=== PATIENT | male | born 1980 | race Caucasian/White ===

== ENCOUNTER 2021-07-12 17:17 | Emergency (ER) | payer SELFPAY ==
[2021-07-12] MEDS ORDERED: BUTALB/ACETAMINOPHEN/CAFFEINE TAB PO ONE (17:35)
[2021-07-12] MEDS ORDERED: fentaNYL 100 MCG/2 ML INJ IM ONE (17:35)
[2021-07-12] MEDS ORDERED: ONDANSETRON 4 MG/2 ML INJ IM ONE (17:35)
--- NOTE | 2021-07-12 17:38 | Emergency Department Report ---
HPI - General Chief Complaint: Headache Time Seen by Provider: 07/12/21 17:28 - HPI HPI: Room 1 The patient is a 40-year-old male present with a chief complaint of headache. Patient states that 3 days he has had intermittent right frontal parietal head ache he describes as a migraine. Patient states he has never been diagnosed with migraines in the past. Patient denies any preceding trauma or fever. Patient denies nausea or vomiting. Patient currently gives his pain score 7/10. Patient states he has been using [id number] medications such as Excedrin and Tylenol without improvement. Patient does admit to seeing "stars" in his vision that turned into "fireworks" but they are all white in color. ED Past Medical Hx - Past Medical History Previous Medical History?: No - Surgical History Additional Surgical History: Back surgery - Family History Family history: no significant - Social History Smoking Status: Former Smoker Substance Use Type: None (Denies illicit drug), Alcohol (Occasional) - Medications Home Medications: Home Medications Medication Instructions Recorded Confirmed Last Taken Type Butalb/Acetamin/Caff 50-325-40 2 tab PO Q8HR PRN #20 tablet 07/12/21 Unknown Rx [Fioricet 50-325-40] ED Review of Systems ROS: Stated complaint: Other details as noted in HPI Constitutional: denies: fever Eyes: denies: eye pain ENT: denies: throat pain Respiratory: no symptoms reported Cardiovascular: denies: chest pain Endocrine: no symptoms reported Gastrointestinal: denies: nausea, vomiting Genitourinary: denies: dysuria Musculoskeletal: denies: back pain Neurological: headache Physical Exam - Physical Exam Physical Exam: GENERAL: The patient is well-developed well-nourished male lying on stretcher appearing to be in mild discomfort. [] HEENT: Normocephalic. Atraumatic. Extraocular motions are intact. Patient has moist mucous membranes. No nystagmus no NECK: Supple. No meningitic signs are noted. CHEST/LUNGS: Clear to auscultation. There is no respiratory distress noted. HEART/CARDIOVASCULAR: Regular. There is no tachycardia. There is no gallop rub or murmur. ABDOMEN: Abdomen is soft, nontender. Patient has normal bowel sounds. There is no abdominal distention. SKIN: There is no rash. There is no edema. There is no diaphoresis. NEURO: The patient is awake, alert, and oriented. The patient is cooperative. The patient has no focal neurologic deficits. The patient has normal speech. GCS 15. Cranial nerves II through XII grossly intact MUSCULOSKELETAL: There is no evidence of acute injury. ED Medical Decision Making - Radiology Data Radiology results: report reviewed (CT head), image reviewed (CT head) [facility] [address] [place] [address] Cat Scan Report Signed Patient: ALAN SMITH MR#: [id number] 6 : 1980 Acct:[id number] Age/Sex: 40 / M ADM Date: 07/12/21 Loc: ED Attending Dr: Ordering Physician: MORIS VELASQUEZ MD Date of Service: 07/12/21 Procedure(s): CT head/brain wo con Accession Number(s): [id number] cc: MORIS VELASQUEZ MD CT HEAD WITHOUT CONTRAST INDICATION / CLINICAL INFORMATION: Right frontal parietal headache. TECHNIQUE: All CT scans at this location are performed using CT dose reduction for ALARA by means of automated exposure control. COMPARISON: None available. FINDINGS: HEMORRHAGE: None. EXTRA-AXIAL SPACES: Normal in size and morphology for the patient's age. VENTRICULAR SYSTEM: Normal in size and morphology for the patient's age. CEREBRAL PARENCHYMA: No significant abnormality. No acute territorial infarct. MIDLINE SHIFT / HERNIATION: None. CEREBELLUM / BRAINSTEM: No significant abnormality. ORBITS: Normal as visualized. SOFT TISSUES: No significant abnormality. SKULL: No significant abnormality. PARANASAL SINUSES / MASTOID AIR CELLS: Normal as visualized. ADDITIONAL FINDINGS: None. IMPRESSION: 1. No acute intracranial abnormality. Signer Name: Nura Linares MD Signed: 07/12/2021 8:03 PM Workstation Name: [id number] Transcribed By: DB Dictated By: NURA LINARES MD Electronically Authenticated By: NURA LINARES MD Signed Date/Time: 07/12/212002 DD/ 01 TD/TT: Print Cancel - Differential Diagnosis Headache, migraine, intracranial mass Critical care attestation.: If time is entered above; I have spent that time in minutes in the direct care of this critically ill patient, excluding procedure time. ED Disposition Clinical Impression: Headache Disposition: 01 HOME / SELF CARE / HOMELESS Is pt being admited?: No Does the pt Need Aspirin: No Condition: Stable Instructions: Migraine Headache, [id number]-[id number], Cluster Headache, General Headache Without Cause, Wazo-rq-[id number] Additional Instructions: Return to the emergency department should you develop worsening symptoms, inability to tolerate food or liquids, high fever or any other concerns Prescriptions: Butalb/Acetamin/Caff 50-325-40 [Fioricet 50-325-40] 2 tab PO Q8HR PRN #20 tablet PRN Reason: Headache Referrals: PRIMARY CAREMD [Primary Care Provider] - 3-5 Days [facility] [Provider Group] - 3-5 Days ELÍAS ALVA MD [Staff Physician] - 3-5 Days (Dr. Alva is a neurologist. Please follow-up with him for further evaluation) Time of Disposition: 21:29
[2021-07-12] MEDS ORDERED: HYDROmorphone 1 MG/1 ML INJ IM ONE (19:54)
--- NOTE | 2021-07-12 20:07 | Cat Scan Report ---
CT HEAD WITHOUT CONTRAST INDICATION / CLINICAL INFORMATION: Right frontal parietal headache. TECHNIQUE: All CT scans at this location are performed using CT dose reduction for ALARA by means of automated exposure control. COMPARISON: None available. FINDINGS: HEMORRHAGE: None. EXTRA-AXIAL SPACES: Normal in size and morphology for the patient's age. VENTRICULAR SYSTEM: Normal in size and morphology for the patient's age. CEREBRAL PARENCHYMA: No significant abnormality. No acute territorial infarct. MIDLINE SHIFT / HERNIATION: None. CEREBELLUM / BRAINSTEM: No significant abnormality. ORBITS: Normal as visualized. SOFT TISSUES: No significant abnormality. SKULL: No significant abnormality. PARANASAL SINUSES / MASTOID AIR CELLS: Normal as visualized. ADDITIONAL FINDINGS: None. IMPRESSION: 1. No acute intracranial abnormality. Signer Name: Nura Linares MD Signed: 07/12/2021 8:03 PM Workstation Name: [id number]
[2021-07-12] MEDS ORDERED: KETOROLAC 30 MG/1 ML INJ IV ONE (20:33)
[2021-07-12] MEDS ORDERED: METOCLOPRAMIDE 10 MG/2 ML INJ IV ONE (20:33)
[2021-07-12] MEDS ORDERED: diphenhydrAMINE 50 MG/ML VIAL IV ONE (20:33)
[2021-07-13 00:09] VITALS: BP 177/92
== END 2021-07-13 00:08 | disposition home or self-care (01) ==
LOC: ED 17:17
DX: R51.9 Headache, unspecified (principal); Z87.891 Personal history of nicotine dependence; Z72.89 Other problems related to lifestyle; Z79.899 Other long term (current) drug therapy
CPT/HCPCS: 70450; 96372; 96374; 96375; 99284; J1200; J1885; J2405; J2765; J3010